=== PATIENT | female | born 1945 | race Caucasian/White ===

== ENCOUNTER → 2016-07-29 | Outpatient (CLI) | payer MEDICARE, OTHER ==
[2016-07-29 14:43] LABS: BASO # 0.1 x10^3/uL (0.0-0.2); BASO % 1 % (0-3); EOS % 6 % (0-3); HEMATOCRIT 39.1 % (36.0-47.0); HEMOGLOBIN 12.8 g/dL (12.0-15.5); LYMPH # 2.8 x10^3/uL (1.0-4.8); LYMPH % 30 % (24-48); MEAN CORPUSCULAR HEMOGLOBIN 30 pg (25-35); MEAN CORPUSCULAR HGB CONC 33 g/dL (31-37); MEAN CORPUSCULAR VOLUME 92 fL (79-100); MONO % 10 % (0-9); NEUT % 54 % (31-73); PLATELET COUNT 308 x10^3/uL (140-400); RED BLOOD COUNT 4.24 x10^6/uL (3.50-5.40); RED CELL DISTRIBUTION WIDTH 13.1 % (11.5-14.5); WHITE BLOOD COUNT 9.5 x10^3/uL (4.0-11.0)
--- NOTE | 2016-07-29 14:52 | EKG ---
[facility] [address] [place] [address] Test Date: 2016-07-29 Test Time: 14:48:47 Pat Name: TONY LOMAS Department: Room: Gender: F [employer]: NIRU : 1945 Requested By: STAFF NON Order Number: [id number] Reading MD: Argentina Coronado Measurements Intervals [place] Rate: 69 P: 69 VA: 174 QRS: -12 QRSD: 80 T: 24 QT: 390 QTc: 419 Interpretive Statements SINUS RHYTHM LEFTWARD AXIS NO SPECIFIC ECG ABNORMALITIES RI6.01 No previous ECG available for comparison Electronically Signed On 07-29-2016 21:08:27 CDT by Argentina Coronado
[2016-07-29 15:04] LABS: ALBUMIN 3.7 g/dL (3.4-5.0); ALBUMIN/GLOBULIN RATIO 0.8 (1.0-1.7); CALCIUM 9.7 mg/dL (8.5-10.1); CREATININE 0.6 mg/dL (0.6-1.0); GFR 98.3; POTASSIUM 4.7 mmol/L (3.5-5.1); TOTAL BILIRUBIN 0.4 mg/dL (0.2-1.0); TOTAL PROTEIN 8.1 g/dL (6.4-8.2)
== END | disposition home or self-care (01) ==
LOC: LAB 13:56
PROVIDERS: ATTEND Surgery
DX: D05.12 Intraductal carcinoma in situ of left breast (principal)
CPT/HCPCS: 36415; 80053; 85027; 93005

== ENCOUNTER → 2016-07-29 | Outpatient (CLI) | payer MEDICARE, OTHER ==
--- NOTE | 2016-07-29 15:26 | RAD ---
EXAM: Carotid Doppler sonogram. HISTORY: Dizziness. TECHNIQUE: Doppler sonographic evaluation of the neck was performed and static images are submitted for review. FINDINGS: The peak systolic velocity within the right common carotid artery is 87 cm/sec. The peak systolic velocities within the right proximal, mid and distal internal carotid artery are 71 cm/sec, 73 cm/sec, and 76 cm/sec, respectively. The peak systolic velocity within the left common carotid artery is 87 cm/sec. The peak systolic velocities within the left proximal, mid and distal internal carotid artery are 79 cm/sec, 56 cm/sec, and 105 cm/sec, respectively. There is normal antegrade flow within both vertebral arteries. IMPRESSION: No Doppler evidence of hemodynamically significant stenosis within the carotid or vertebral arteries. PQRS Statement: NASCET criteria were utilized for this exam.
== END | disposition home or self-care (01) ==
LOC: US 13:45
PROVIDERS: ATTEND Family Medicine
DX: R42 Dizziness and giddiness (principal)
CPT/HCPCS: 93880

== ENCOUNTER → 2016-10-27 | Outpatient (CLI) | payer MEDICARE ==
--- NOTE | 2016-10-27 13:18 | KCIC ---
3 view right knee HISTORY: Chronic generalized pain worse the last 2 months. Arthritis. FINDINGS: Mild degenerative spurring is seen at the medial joint. Subtle subchondral lucency at the medial femoral condyle may represent a degenerative cyst. No acute fracture or dislocation. No aggressive bone destruction. Small enthesophyte at the superior patella. There appears to be a bipartite developmental variant at the superolateral patella with associated bone hypertrophy. IMPRESSION: 1. Mild degenerative changes particularly at the medial joint compartment. 2. 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 Electronically signed by: Gibran Escalante MD (10/27/2016 1:12 PM)
== END | disposition home or self-care (01) ==
LOC: KCIC 10:40
PROVIDERS: ATTEND Family Medicine
DX: M17.11 Unilateral primary osteoarthritis, right knee (principal)
CPT/HCPCS: 73562

== ENCOUNTER → 2019-10-26 | Outpatient (CLI) | payer MEDICARE ==
[~2019-10-26] MED LIST: ANAS1TAB47 PO; ASCO500C PO; ASPI-630 PO; BIOT10004 PO; CALC-167 PO; CHOL500050 PO; CYAN250012 PO/SL; FEXO180T81 PO; GARL100T PO; HYDR-2761 PO; LISI10TA2 PO; MAGN400C PO; MULT1TAB49 PO; SIMV20TA18 PO
== END | disposition home or self-care (01) ==
LOC: LAB 12:29
PROVIDERS: ATTEND Orthopaedic Surgery Sports Medicine
DX: Z11.59 Encounter for screening for other viral diseases (principal)
CPT/HCPCS: U0003-CS

== ENCOUNTER 2019-10-31 08:37 | Day surgery (SDC) | payer MEDICARE ==
[~2019-10-31] VITALS: Ht 156.8 cm; Wt 70.3 kg
[~2019-10-31 08:37] MED LIST changes: +HYDROmorphone 2 MG/ML VIAL IV PRN; +IV RINGERS,LACTATED 1000ML 1,000 ML IV SCH; +LIDOCAINE 1% PF 2 ML VIAL. ID PRN; +MORPHINE SULFATE 2 MG/ML VIAL. IV PRN; +ONDANSETRON PF 4 MG/2 ML VIAL. IV PRN; +PROCHLORPERAZINE 10 MG/2 ML VIAL. IV PRN; +ceFAZolin SODIUM IV Push 1 GM VIAL. IVP PRN; +fentaNYL PF VIAL 100 MCG/2 ML VIAL IV PRN
[2019-10-31] MEDS ORDERED: BUPIVACAINE MPF 0.5% 30 ML VIAL. ONE (10:22)
[2019-10-31] MEDS ORDERED: MIDAZOLAM HCL/PF 2 MG/2 ML VIAL. ONE (10:22)
[2019-10-31] MEDS ORDERED: fentaNYL PF VIAL 100 MCG/2 ML VIAL ONE (10:22)
[2019-10-31] MEDS ORDERED: LIDOCAINE 1% PF 30 ML VIAL. ONE (10:22)
--- NOTE | 2019-10-31 10:22 | DISCH ---
DISCHARGE INSTRUCTIONS Condition on Discharge Condition on Discharge: Stable Activity After Discharge Activity Instructions for Disc: Other ROM activity Other activity instructions: Keep hand elevated, wiggle fingers Bathing Instructions: Shower-keep dressing dry Weight Bearing Status after Di: As tolerated Diet after Discharge Diet after Discharge: Regular Wound Incision Care Wound/Incision Care: Ice to area for comfort, Keep wound/cast CDI, Keep wound elevated, Change dressing Contacting the DR. after DC Call your doctor for: Concerns you may have Follow-Up Follow up with: Constantine in 2 wks BOOM HARRELL II, MD Oct 31, 2019 10:22
[2019-10-31] MEDS ORDERED: HYDR-3164 PO (10:31)
[2019-10-31] MEDS ORDERED: DOCU-109 PO (10:32)
[2019-10-31] MEDS ORDERED: PROPOFOL 10 MG/ML (20ML) VIAL. IV ONE (10:41)
[2019-10-31] MEDS ORDERED: HYDROcodone/APAP 5/325MG 1 TAB TABLET PO ONE (11:00)
[2019-10-31] MEDS ORDERED: 0.9 % SODIUM CHLORIDE 20 ML VIAL. IJ ONE ×3 (11:14)
[2019-10-31] MEDS ORDERED: LIDOCAINE 2% PF 5 ML VIAL. ONE (11:15)
--- NOTE | 2019-10-31 11:28 | PDOC4 ---
Operative Note Operative Note Date of procedure: 10/31/2019 Surgeon: Dominic Harrell Third Cook: Flakito Durbin, certified registered dental assistant Preoperative diagnosis: Right carpal tunnel syndrome Postoperative diagnosis: Same Procedure performed: Open right carpal tunnel release Anesthesia: Halley block, sedation Findings: Normal appearing median nerve Tourniquet time: Blood loss: Reason for procedure: Patient is a very pleasant female who I seen in consultation for her numbness and tingling in her hand. EMG supported the diagnosis as did her clinical exam. She had tried and failed conservative the rapies including a wrist splint and anti-inflammatories. Because of progressive symptoms and interference with her activities of daily living, we discussed proceeding with surgery and she wished to proceed. Description of procedure: Patient was greeted in the preoperative holding area by myself or the correct extremity was verified and marked. She was taken to the operative suite and antibiotics were started as she was brought back. Once in the operating, she was transferred gently supine to the operating table and secured bed with all pressure points padded. She had successful placement of a [place] block. The hand table attachment was secured to the OR table. Nonsterile tourniquet was placed to her right upper arm. We then proceeded to prep and drape right upper extremity in her usual sterile fashion and conducted our standard preoperative timeout. I then made an incision through a palmar wrist crease from her distal wrist crease into her palm. I incised skin with a scalpel and dissected subcutaneous tissue with a curved hemostat. Identified the palmar fascia and incised this in line with the skin incision. I then placed my self-retaining retractor and identified the transverse carpal ligament and released sharply with a scalpel. I then placed a [place] of the distal portion of the incision, spread above and below small remaining portion of the carpal ligament and releases with tenotomy's. I then repeated this maneuver in an ulnar directed fashion to release the distal antebrachial fascia at the pro ximal portion of the incision. I then palpated along the course of the nerve with the tip of the tenotomies to ensure that accomplished a complete release and I was confident I had. I then thoroughly irrigated out the operative field. Skin was closed with simple interrupted 3-0 nylon. Prior to wound closure, all counts correct x2. No complications. Postoperative plan is to discharge her home, weightbearing restrictions were discussed with her and her family member. Wound care was also discussed and given in written form. I will see her back in 2 weeks, sooner should a problem arise. DOMINIC HARRELL II, MD Oct 31, 2019 11:28
[2019-10-31 12:01] VITALS: BP 165/88
== END 2019-10-31 12:33 | disposition home or self-care (01) ==
LOC: SURG 08:37
PROVIDERS: ATTEND Orthopaedic Surgery Sports Medicine
DX: G56.01 Carpal tunnel syndrome, right upper limb (principal); Z79.82 Long term (current) use of aspirin; Z79.899 Other long term (current) drug therapy
CPT/HCPCS: 64721; J0690; J2250; J2704; J3010; J3490